=== PATIENT | male | born 1935 | race Caucasian/White ===

== ENCOUNTER 2017-09-09 06:04 | Emergency (ER) | payer MEDICARE, BC ==
[~2017-09-09] VITALS: Ht 167.6 cm; Wt 88.6 kg
[2017-09-09] MEDS ORDERED: MAGNESIUM 400 M1 TAB PO (07:26)
[2017-09-09] MEDS ORDERED: SAW PALMETTO PO (07:27)
[2017-09-09] MEDS ORDERED: OMEPRAZOLE10 MG PO (07:38)
[2017-09-09] MEDS ORDERED: IRON45 MG PO (07:39)
[2017-09-09] MEDS ORDERED: CALCIUM CITRAT950 MG PO (07:41)
[2017-09-09] MEDS ORDERED: DONEPEZIL5 MG PO (07:42)
[2017-09-09] MEDS ORDERED: GLUCOSAMINE1500 M1 PO (07:42)
[2017-09-09] MEDS ORDERED: OMEGA 31000 MG PO (07:42)
[2017-09-09] MEDS ORDERED: TAMSULOSIN HCL0.4 MG PO (07:43)
[2017-09-09] MEDS ORDERED: SINEMET 25/1001 TAB PO (07:43)
[2017-09-09 07:46] LABS: HEMATOCRIT 42.8 % (39.0-50.0); HEMOGLOBIN 14.2 g/dl (14.0-18.0); IMMATURE GRANULOCYTES 0.4 % (0.0-1.0); MEAN CELL VOLUME 97.9 fL CALC (80.0-100.0); MEAN CORPUSCULAR HGB 32.5 pG CALC (26.0-32.0); MEAN CORPUSCULAR HGB CONC 33.2 g/L CALC (32.0-36.0); NEUT# 9.76 thou/uL (1.82-7.42); RED BLOOD COUNT 4.37 mill/uL (4.70-6.10)
[2017-09-09 07:57] LABS: INFLUENZA A NONE DETECTED (NONE DETECT); INFLUENZA B NONE DETECTED (NONE DETECT)
[2017-09-09 08:06] LABS: MYOGLOBIN 157 ng/mL (0 - 121)
[2017-09-09 08:16] LABS: ALBUMIN 3.9 g/dL (3.2-5.0); ALKALINE PHOSPHATASE 85 u/l (38-126); ANION GAP 16 (6-22 (CALC)); BILIRUBIN, TOTAL 0.9 mg/dL (0.0-1.4); BUN 14 mg/dL (8-23); BUN/CREATININE RATIO 11 (12-20 (CALC)); CALCIUM 9.9 mg/dL (8.4-10.2); CARBON DIOXIDE 25 mmol/l (22-30); CHLORIDE 105 mmol/l (95-108); CREATININE 1.2 mg/dL (0.7-1.3); ETHYL ALCOHOL 0 mg/dl (0-30); GFR 58 ML/MIN (>=60 (CALC)); GFR FOR AFR.AMER. > 60 ML/MIN (>=60 (CALC)); GLUCOSE 117 mg/dL (82-115); POTASSIUM 4.2 mmol/l (3.5-5.1); SGOT/AST 25 u/l (19-48); SGPT/ALT 25 u/l (11-66); SODIUM 142 mmol/l (137-146); TOTAL PROTEIN 6.7 g/dL (6.3-8.2)
[2017-09-09 09:27] LABS: URINE BILIRUBIN - DIPSTICK NEGATIVE (NEGATIVE); URINE BLOOD DIPSTICK MODERATE (NEGATIVE); URINE GLUCOSE - DIPSTICK NEGATIVE (NEGATIVE); URINE KETONE 15 mg/dL (NEGATIVE); URINE LEUK ESTERASE NEGATIVE (NEGATIVE); URINE NITRITE - DIPSTICK NEGATIVE (Negative); URINE PH 7.5 (4.5-8.0); URINE PROTEIN - DIPSTICK 30 mg/dL (NEG-TRACE); URINE UROBILINOGEN - DIPSTICK 0.2 E.U./dL (0.2)
[2017-09-09 09:35] LABS: URINE CLARITY SL CLOUDY; URINE COLOR DK. YELLOW; URINE EPITHELIAL CELLS FEW EPI/hpf (0-FEW); URINE MUCUS MODERATE hpf (NONE-FEW)
[2017-09-09 09:36] LABS: BARBITURATES NEGATIVE (NEGATIVE); COCAINE NEGATIVE (NEGATIVE); METHADONE NEGATIVE (NEGATIVE); OXCYCODONE NEGATIVE (NEGATIVE); TETRAHYDROCANNABIONOL NEGATIVE (NEGATIVE); TRICYLIC ANTIDEPRESSANTS NEGATIVE (NEGATIVE)
[2017-09-09 10:30] VITALS: BP 86/53
== END 2017-09-09 10:30 | disposition short-term general hospital (02) ==
LOC: ED 06:04
PROVIDERS: Emergency Medicine
DX: S06.2X0A Diffuse traumatic brain injury without loss of consciousness, initial encounter (principal); G20 Parkinson's disease; F02.80 Dementia in other diseases classified elsewhere, unspecified severity, without behavioral disturbance, psychotic disturbance, mood disturbance, and anxiety; N40.0 Benign prostatic hyperplasia without lower urinary tract symptoms; W19.XXXA Unspecified fall, initial encounter; R00.1 Bradycardia, unspecified

== ENCOUNTER 2018-04-20 05:22 | Observation (INO) | payer MEDICARE, BC ==
[2018-04-20] VITALS (9 sets, daily range): BP systolic 87–116; BP diastolic 39–67
[~2018-04-20] VITALS: Ht 167.6 cm; Wt 86.0 kg
[~2018-04-20 05:22] MED LIST: CALCIUM CITRAT950 MG PO; DONEPEZIL5 MG PO; GLUCOSAMINE1500 M1 PO; IRON45 MG PO; MAGNESIUM 400 M1 TAB PO; OMEGA 31000 MG PO; OMEPRAZOLE10 MG PO; SAW PALMETTO PO; SINEMET 25/1001 TAB PO; TAMSULOSIN HCL0.4 MG PO
[2018-04-20 06:14] LABS: HEMATOCRIT 33.9 % (39.0-50.0); HEMOGLOBIN 11.4 g/dl (14.0-18.0); IMMATURE GRANULOCYTES 0.5 % (0.0-5.0); MEAN CELL VOLUME 97.7 fL CALC (80.0-100.0); MEAN CORPUSCULAR HGB 32.9 pG CALC (26.0-32.0); MEAN CORPUSCULAR HGB CONC 33.6 g/L CALC (32.0-36.0); NEUT# 10.87 thou/uL (1.82-7.42); RED BLOOD COUNT 3.47 mill/uL (4.70-6.10); RED CELL DISTRI WIDTH 12.2 % (11.5-15.5)
[2018-04-20 06:32] LABS: ALBUMIN 3.2 g/dL (3.2-5.0); BILIRUBIN, TOTAL 0.7 mg/dL (0.0-1.4); CREATININE 1.6 mg/dL (0.7-1.3); POTASSIUM 4.5 mmol/l (3.5-5.1); TOTAL PROTEIN 6.2 g/dL (6.3-8.2)
[2018-04-20] MEDS ORDERED: SINEMET CR PO ×2 (06:36→09:19)
[2018-04-20] MEDS ORDERED: ZYRTEC10 MG PO (06:44)
[2018-04-20] MEDS ORDERED: RED YEAS1 PO (06:45)
[2018-04-20] MEDS ORDERED: VITAMIN B-12500 MCG PO (06:46)
[2018-04-20] MEDS ORDERED: [UNRECOGNIZED DRUG - CODE] (06:47)
[2018-04-20] MEDS ORDERED: SMZ-TMP DS1 TAB PO (06:49)
[2018-04-20 07:27] LABS: URINE BILIRUBIN - DIPSTICK NEGATIVE (NEGATIVE); URINE BLOOD DIPSTICK MODERATE (NEGATIVE); URINE CLARITY CLEAR; URINE COLOR YELLOW; URINE GLUCOSE - DIPSTICK NEGATIVE (NEGATIVE); URINE KETONE 15 mg/dL (NEGATIVE); URINE LEUK ESTERASE TRACE (NEGATIVE); URINE NITRITE - DIPSTICK NEGATIVE (Negative); URINE PROTEIN - DIPSTICK 30 mg/dL (NEG-TRACE); URINE SPECIFIC GRAVITY 1.025; URINE UROBILINOGEN - DIPSTICK 0.2 E.U./dL (0.2)
[2018-04-20 07:37] LABS: URINE BACTERIA FEW hpf; URINE MUCUS FEW hpf (NONE-FEW); URINE WBC 20-50 WBC/hpf (0-5)
[2018-04-20 08:19] LABS: INFLUENZA A NONE DETECTED (NONE DETECT); INFLUENZA B NONE DETECTED (NONE DETECT)
[2018-04-20] MEDS ORDERED: DONEPEZIL HCL10 M1 PO (09:18)
[2018-04-20 10:11] LABS: PROTHROMBIN TIME 11.6 SECONDS (9.0-12.5)
[2018-04-21 05:11] VITALS: BP 121/64
[2018-04-21 05:44] LABS: HEMATOCRIT 30.3 % (39.0-50.0); HEMOGLOBIN 10.2 g/dl (14.0-18.0); MEAN CORPUSCULAR HGB CONC 33.7 g/L CALC (32.0-36.0); RED CELL DISTRI WIDTH 12.5 % (11.5-15.5)
[2018-04-21 06:16] LABS: ANION GAP 13 (6-22 (CALC)); BUN 11 mg/dL (8-23); BUN/CREATININE RATIO 10 (12-20 (CALC)); CARBON DIOXIDE 21 mmol/l (22-30); CHLORIDE 110 mmol/l (95-108); CREATININE 1.2 mg/dL (0.7-1.3); GFR 58 ML/MIN (>=60 (CALC)); GFR FOR AFR.AMER. > 60 ML/MIN (>=60 (CALC)); MAGNESIUM 1.8 mg/dL (1.6-2.3); POTASSIUM 4.1 mmol/l (3.5-5.1); SODIUM 140 mmol/l (137-146)
[2018-04-21 09:15] VITALS: BP 138/80
[2018-04-21 11:10] VITALS: BP 120/72
[2018-04-21 15:19] VITALS: BP 104/62
[2018-04-21 19:15] VITALS: BP 125/70
[2018-04-22 04:00] VITALS: BP 138/86
[2018-04-22 07:59] VITALS: BP 138/70
== END 2018-04-22 16:40 | disposition home or self-care (01) ==
LOC: ED 05:22 → ED-I 08:21 → ED 08:32 → MS2 08:33
PROVIDERS: Emergency Medicine; Nurse Practitioner Family; ADMIT Internal Medicine; ATTEND Internal Medicine
PROC: 0T778DZ Dilation of Left Ureter with Intraluminal Device, Via Natural or Artificial Opening Endoscopic (ICD-10-PCS; principal; 2018-04-20)
PROC: BT1FZZZ Fluoroscopy of Left Kidney, Ureter and Bladder (ICD-10-PCS; 2018-04-20)
DX: N13.6 Pyonephrosis (principal); N17.9 Acute kidney failure, unspecified; E86.0 Dehydration; I10 Essential (primary) hypertension; N28.1 Cyst of kidney, acquired; D64.9 Anemia, unspecified; G20 Parkinson's disease; N40.0 Benign prostatic hyperplasia without lower urinary tract symptoms; N32.89 Other specified disorders of bladder; I34.1 Nonrheumatic mitral (valve) prolapse; N32.3 Diverticulum of bladder; G31.84 Mild cognitive impairment of uncertain or unknown etiology; Z87.891 Personal history of nicotine dependence; Z79.899 Other long term (current) drug therapy
CPT/HCPCS: C1769; J1650; Q9967

== ENCOUNTER 2018-05-17 05:43 | Day surgery (SDC) | payer MEDICARE, BC ==
[~2018-05-17 05:43] MED LIST changes: +DONEPEZIL HCL10 M1 PO; +RED YEAS1 PO; +SINEMET CR PO; +SMZ-TMP DS1 TAB PO; +VITAMIN B-12500 MCG PO; +ZYRTEC10 MG PO; +[UNRECOGNIZED DRUG - CODE]
[2018-05-17] MEDS ORDERED: TAMSULOSIN0.4 MG PO (09:14)
[2018-05-17] MEDS ORDERED: NORCO1 TA1 PO (09:14)
[2018-05-17] MEDS ORDERED: PYRIDIUM200 MG PO (09:14)
[2018-05-17] MEDS ORDERED: DOCUSATE CAL240 MG PO (09:14)
[2018-05-17] MEDS ORDERED: BACTRIM DS1 TAB PO (09:14)
[2018-05-17 10:29] VITALS: BP 162/63
== END 2018-05-17 12:00 | disposition home or self-care (01) ==
LOC: ORM 05:43
PROVIDERS: ATTEND Urology
PROC: 0TF48ZZ Fragmentation in Left Kidney Pelvis, Via Natural or Artificial Opening Endoscopic (ICD-10-PCS; principal; 2018-05-17)
PROC: 0T778DZ Dilation of Left Ureter with Intraluminal Device, Via Natural or Artificial Opening Endoscopic (ICD-10-PCS; 2018-05-17)
DX: N20.0 Calculus of kidney (principal); N28.1 Cyst of kidney, acquired; G20 Parkinson's disease; N32.89 Other specified disorders of bladder; N40.1 Benign prostatic hyperplasia with lower urinary tract symptoms; N13.8 Other obstructive and reflux uropathy
CPT/HCPCS: J2710; Q9967

== ENCOUNTER 2018-05-18 23:59 | Emergency (ER) | payer MEDICARE, BC ==
[~2018-05-18] VITALS: Ht 167.6 cm; Wt 77.0 kg
[~2018-05-18 23:59] MED LIST changes: +BACTRIM DS1 TAB PO; +DOCUSATE CAL240 MG PO; +NORCO1 TA1 PO; +PYRIDIUM200 MG PO; +TAMSULOSIN0.4 MG PO
[2018-05-19 01:10] VITALS: BP 118/74
== END 2018-05-19 01:15 | disposition home or self-care (01) ==
LOC: ED 23:59
DX: T83.038A Leakage of other urinary catheter, initial encounter (principal)

== ENCOUNTER 2021-03-13 08:22 | Emergency (ER) | payer MEDICARE, BC ==
[~2021-03-13] VITALS: Ht 167.6 cm; Wt 73.6 kg
[2021-03-13 09:58] LABS: HEMATOCRIT 37.5 % (39.0-50.0); HEMOGLOBIN 12.1 g/dl (14.0-18.0); IMMATURE GRANULOCYTES 0.3 % (0.0-5.0); MEAN CELL VOLUME 102.2 fL CALC (80.0-100.0); MEAN CORPUSCULAR HGB CONC 32.3 g/dL CAL (32.0-36.0); NEUT# 5.13 thou/uL (1.82-7.42); RED BLOOD COUNT 3.67 mill/uL (4.70-6.10); RED CELL DISTRI WIDTH 12.8 % (11.5-15.5)
[2021-03-13 10:13] LABS: ACT PARTIAL THROMBO TIME 27.9 SECONDS (20.0-32.5); ALBUMIN 3.6 g/dL (3.2-5.0); ALKALINE PHOSPHATASE 72 u/l (38-126); ANION GAP 10 (6-22 (CALC)); BILIRUBIN, TOTAL 0.6 mg/dL (0.0-1.4); BUN 9 mg/dL (8-23); BUN/CREATININE RATIO 15 (12-20 (CALC)); CARBON DIOXIDE 25 mmol/l (22-30); CHLORIDE 103 mmol/l (95-108); CREATININE 0.6 mg/dL (0.7-1.3); GFR > 60 ML/MIN (>=60 (CALC)); GFR FOR AFR.AMER. > 60 ML/MIN (>=60 (CALC)); INTERNATIONAL NORMALIZED RATIO 1.1 RATIO (0.7-1.3); LIPASE 21 u/l (23-300); POTASSIUM 3.6 mmol/l (3.5-5.1); PROTHROMBIN TIME 11.3 SECONDS (9.0-12.5); SGOT/AST 23 u/l (19-48); SODIUM 134 mmol/l (137-146); TOTAL PROTEIN 6.8 g/dL (6.3-8.2)
[2021-03-13 11:46] LABS: URINE BILIRUBIN - DIPSTICK NEGATIVE (NEGATIVE); URINE BLOOD DIPSTICK NEGATIVE (NEGATIVE); URINE COLOR YELLOW; URINE GLUCOSE - DIPSTICK NEGATIVE (NEGATIVE); URINE KETONE NEGATIVE (NEGATIVE); URINE LEUK ESTERASE NEGATIVE (NEGATIVE); URINE PROTEIN - DIPSTICK NEGATIVE (NEG-TRACE); URINE SPECIFIC GRAVITY 1.015; URINE UROBILINOGEN - DIPSTICK 0.2 E.U./dL (0.2)
[2021-03-13 11:48] LABS: URINE NITRITE - DIPSTICK NEGATIVE (Negative)
[2021-03-13] MEDS ORDERED: ZPAK PO (12:14)
[2021-03-13 12:22] VITALS: BP 152/74
== END 2021-03-13 12:24 | disposition home or self-care (01) ==
LOC: ED 08:22
DX: S40.011A Contusion of right shoulder, initial encounter (principal); S40.012A Contusion of left shoulder, initial encounter; S20.211A Contusion of right front wall of thorax, initial encounter; J18.9 Pneumonia, unspecified organism; G20 Parkinson's disease; I10 Essential (primary) hypertension; N40.0 Benign prostatic hyperplasia without lower urinary tract symptoms; W19.XXXA Unspecified fall, initial encounter; Y92.009 Unspecified place in unspecified non-institutional (private) residence as the place of occurrence of the external cause; Z91.81 History of falling; Z20.822 Contact with and (suspected) exposure to COVID-19

== ENCOUNTER 2022-08-08 16:50 | Emergency (ER) | payer MEDICARE, BC ==
[~2022-08-08] VITALS: Ht 167.6 cm; Wt 74.0 kg
[~2022-08-08 16:50] MED LIST changes: +ZPAK PO
[2022-08-08] MEDS ORDERED: NUPLAZID34 MG (17:44)
[2022-08-08] MEDS ORDERED: GUAIFENESIN400 MG PO (19:46)
[2022-08-08] MEDS ORDERED: PREDNISONE10 MG PO (19:46)
[2022-08-08] MEDS ORDERED: ZYRTEC10 MG PO (19:46)
[2022-08-08] MEDS ORDERED: PROAIR HFA IN (19:46)
[2022-08-08 20:19] VITALS: BP 130/78
== END 2022-08-08 20:32 | disposition home or self-care (01) ==
LOC: ED 16:50
DX: J40 Bronchitis, not specified as acute or chronic (principal); I10 Essential (primary) hypertension; G20 Parkinson's disease; Z20.822 Contact with and (suspected) exposure to COVID-19

== ENCOUNTER 2022-10-20 10:39 | Emergency (ER) | payer MEDICARE, BC ==
[~2022-10-20] VITALS: Ht 167.6 cm; Wt 72.5 kg
[~2022-10-20 10:39] MED LIST changes: +GUAIFENESIN400 MG PO; +NUPLAZID34 MG; +PREDNISONE10 MG PO; +PROAIR HFA IN
[2022-10-20] MEDS ORDERED: LEVOCETIRIZINE D5 MG PO (13:47)
[2022-10-20] MEDS ORDERED: ALLERGY RE50 MCG/ACT (13:47)
[2022-10-20 14:04] VITALS: BP 159/97
== END 2022-10-20 14:15 | disposition home or self-care (01) ==
LOC: ED 10:39
DX: J32.9 Chronic sinusitis, unspecified (principal); I10 Essential (primary) hypertension; G20 Parkinson's disease; Z20.822 Contact with and (suspected) exposure to COVID-19

== ENCOUNTER 2022-10-28 20:07 | Inpatient (IN) | payer MEDICARE, BC ==
[2022-10-28] VITALS (15 sets, daily range): BP systolic 84–128; BP diastolic 55–101
[~2022-10-28] VITALS: Ht 167.6 cm; Wt 74.3 kg
[~2022-10-28 20:07] MED LIST changes: +ALLERGY RE50 MCG/ACT; +LEVOCETIRIZINE D5 MG PO
[2022-10-28 20:56] LABS: BASO% 0.2 % (0-3); EOS% 1.1 % (0-8); HEMATOCRIT 39.4 % (39.0-50.0); HEMOGLOBIN 12.6 g/dl (14.0-18.0); IMMATURE GRANULOCYTES 0.2 % (0.0-5.0); LYMPH% 4.6 % (15-41); MEAN CELL VOLUME 102.3 fL CALC (80.0-100.0); MEAN CORPUSCULAR HGB 32.7 pG CALC (26.0-32.0); MONO% 6.2 % (2-13); NEUT# 11.8 thou/uL (1.82-7.42); NEUT% 87.7 % (42-76); RED BLOOD COUNT 3.85 mill/uL (4.70-6.10); RED CELL DISTRI WIDTH 12.9 % (11.5-15.5)
[2022-10-28 21:09] LABS: ALBUMIN 3.6 g/dL (3.2-5.0); ALKALINE PHOSPHATASE 90 u/l (38-126); ANION GAP 9 (6-22 (CALC)); BILIRUBIN, TOTAL 0.7 mg/dL (0.2-1.3); BUN 12 mg/dL (8-23); BUN/CREATININE RATIO 18 (12-20 (CALC)); CARBON DIOXIDE 26 mmol/l (22-30); CHLORIDE 105 mmol/l (95-108); CREATININE 0.7 mg/dL (0.7-1.3); GFR FOR AFR.AMER. > 60 ML/MIN (>=60 (CALC)); GFR OTHER RACES > 60 ML/MIN (>=60 (CALC)); SGOT/AST 22 u/l (19-48); SODIUM 136 mmol/l (137-146); TOTAL PROTEIN 6.9 g/dL (6.3-8.2)
[2022-10-28 22:30] LABS: URINE BILIRUBIN - DIPSTICK NEGATIVE (NEGATIVE); URINE BLOOD DIPSTICK NEGATIVE (NEGATIVE); URINE COLOR YELLOW; URINE GLUCOSE - DIPSTICK NEGATIVE (NEGATIVE); URINE KETONE TRACE mg/dL (NEGATIVE); URINE LEUK ESTERASE NEGATIVE (NEGATIVE); URINE PH 6.5 (4.5-8.0); URINE PROTEIN - DIPSTICK NEGATIVE (NEG-TRACE); URINE UROBILINOGEN - DIPSTICK 0.2 E.U./dL (0.2)
[2022-10-28 22:31] LABS: URINE NITRITE - DIPSTICK NEGATIVE (Negative)
[2022-10-29] VITALS (9 sets, daily range): BP systolic 102–131; BP diastolic 55–77
[2022-10-29] MEDS ORDERED: LEVOTHYROXIN50 MCG PO (18:00)
[2022-10-29] MEDS ORDERED: RIVASTIGMI4.6 MG/24 TD (18:02)
[2022-10-29] MEDS ORDERED: FLUDROCORT0.1 MG PO (18:02)
[2022-10-29] MEDS ORDERED: DROXIDOPA PO (18:04)
[2022-10-29] MEDS ORDERED: RYTARY 36.25-141 CAP PO (18:05)
[2022-10-29] MEDS ORDERED: FINASTERIDE5 MG PO (18:09)
[2022-10-30 03:32] VITALS: BP 147/79
[2022-10-30 05:07] LABS: BASO% 0.2 % (0-3); EOS% 4.4 % (0-8); HEMATOCRIT 34.9 % (39.0-50.0); HEMOGLOBIN 11.2 g/dl (14.0-18.0); IMMATURE GRANULOCYTES 0.8 % (0.0-5.0); LYMPH% 16.1 % (15-41); MEAN CELL VOLUME 102.6 fL CALC (80.0-100.0); MEAN CORPUSCULAR HGB 32.9 pG CALC (26.0-32.0); MEAN CORPUSCULAR HGB CONC 32.1 g/dL CAL (32.0-36.0); MONO% 10.8 % (2-13); NEUT# 4.5 thou/uL (1.82-7.42); NEUT% 67.7 % (42-76); RED BLOOD COUNT 3.4 mill/uL (4.70-6.10)
[2022-10-30 05:27] LABS: ALKALINE PHOSPHATASE 76 u/l (38-126); ANION GAP 8 (6-22 (CALC)); BUN 12 mg/dL (8-23); BUN/CREATININE RATIO 21 (12-20 (CALC)); CARBON DIOXIDE 24 mmol/l (22-30); CHLORIDE 110 mmol/l (95-108); CREATININE 0.6 mg/dL (0.7-1.3); GFR FOR AFR.AMER. > 60 ML/MIN (>=60 (CALC)); GFR OTHER RACES > 60 ML/MIN (>=60 (CALC)); POTASSIUM 3.9 mmol/l (3.5-5.1); SGOT/AST 19 u/l (19-48); SODIUM 138 mmol/l (137-146)
[2022-10-30 05:35] LABS: ALBUMIN 2.7 g/dL (3.2-5.0); BILIRUBIN, TOTAL 0.4 mg/dL (0.2-1.3); TOTAL PROTEIN 5.4 g/dL (6.3-8.2)
[2022-10-30 06:00] VITALS: BP 143/83
[2022-10-30 10:01] VITALS: BP 137/88
[2022-10-30 14:40] VITALS: BP 158/86
[2022-10-30 18:02] VITALS: BP 142/87
[2022-10-30 23:22] VITALS: BP 122/68
[2022-10-31] VITALS (7 sets, daily range): BP systolic 119–152; BP diastolic 73–82
[2022-10-31 05:35] LABS: BASO% 0.4 % (0-3); EOS% 6.2 % (0-8); HEMATOCRIT 36.8 % (39.0-50.0); HEMOGLOBIN 11.7 g/dl (14.0-18.0); IMMATURE GRANULOCYTES 0.3 % (0.0-5.0); LYMPH% 16.9 % (15-41); MEAN CELL VOLUME 102.8 fL CALC (80.0-100.0); MEAN CORPUSCULAR HGB 32.7 pG CALC (26.0-32.0); MEAN CORPUSCULAR HGB CONC 31.8 g/dL CAL (32.0-36.0); MONO% 8.6 % (2-13); NEUT# 5.05 thou/uL (1.82-7.42); NEUT% 67.6 % (42-76); RED BLOOD COUNT 3.58 mill/uL (4.70-6.10); RED CELL DISTRI WIDTH 12.9 % (11.5-15.5)
[2022-10-31 05:58] LABS: ALBUMIN 3.2 g/dL (3.2-5.0); ALKALINE PHOSPHATASE 70 u/l (38-126); ANION GAP 8 (6-22 (CALC)); BUN 11 mg/dL (8-23); BUN/CREATININE RATIO 17 (12-20 (CALC)); CARBON DIOXIDE 27 mmol/l (22-30); CHLORIDE 106 mmol/l (95-108); CREATININE 0.6 mg/dL (0.7-1.3); GFR FOR AFR.AMER. > 60 ML/MIN (>=60 (CALC)); GFR OTHER RACES > 60 ML/MIN (>=60 (CALC)); POTASSIUM 3.8 mmol/l (3.5-5.1); SGOT/AST 20 u/l (19-48); SODIUM 138 mmol/l (137-146); TOTAL PROTEIN 6.3 g/dL (6.3-8.2)
[2022-10-31 06:07] LABS: BILIRUBIN, TOTAL 0.6 mg/dL (0.2-1.3)
[2022-11-01 03:19] VITALS: BP 140/79
[2022-11-01 05:43] VITALS: BP 139/71
[2022-11-01 05:57] LABS: BASO% 0.4 % (0-3); EOS% 6.9 % (0-8); HEMATOCRIT 35.9 % (39.0-50.0); HEMOGLOBIN 11.5 g/dl (14.0-18.0); IMMATURE GRANULOCYTES 0.3 % (0.0-5.0); LYMPH% 17.8 % (15-41); MEAN CELL VOLUME 103.2 fL CALC (80.0-100.0); NEUT# 4.99 thou/uL (1.82-7.42); NEUT% 65.6 % (42-76); RED BLOOD COUNT 3.48 mill/uL (4.70-6.10); RED CELL DISTRI WIDTH 12.8 % (11.5-15.5)
[2022-11-01 06:19] LABS: ALBUMIN 3.3 g/dL (3.2-5.0); ALKALINE PHOSPHATASE 72 u/l (38-126); ANION GAP 10 (6-22 (CALC)); BILIRUBIN, TOTAL 0.7 mg/dL (0.2-1.3); BUN 11 mg/dL (8-23); BUN/CREATININE RATIO 18 (12-20 (CALC)); CARBON DIOXIDE 26 mmol/l (22-30); CHLORIDE 105 mmol/l (95-108); CREATININE 0.6 mg/dL (0.7-1.3); GFR FOR AFR.AMER. > 60 ML/MIN (>=60 (CALC)); GFR OTHER RACES > 60 ML/MIN (>=60 (CALC)); MAGNESIUM 1.9 mg/dL (1.6-2.3); POTASSIUM 3.7 mmol/l (3.5-5.1); SGOT/AST 21 u/l (19-48); SODIUM 137 mmol/l (137-146); TOTAL PROTEIN 6.4 g/dL (6.3-8.2)
[2022-11-01 09:31] VITALS: BP 121/62
[2022-11-01 16:04] VITALS: BP 102/68
[2022-11-01 17:27] VITALS: BP 97/56
[2022-11-02 03:41] VITALS: BP 137/69
[2022-11-02 06:14] VITALS: BP 135/73
[2022-11-02 06:15] LABS: BASO% 0.2 % (0-3); EOS% 5.2 % (0-8); HEMATOCRIT 33.9 % (39.0-50.0); HEMOGLOBIN 10.9 g/dl (14.0-18.0); IMMATURE GRANULOCYTES 0.7 % (0.0-5.0); LYMPH% 10.6 % (15-41); MEAN CELL VOLUME 102.1 fL CALC (80.0-100.0); MEAN CORPUSCULAR HGB 32.8 pG CALC (26.0-32.0); MEAN CORPUSCULAR HGB CONC 32.2 g/dL CAL (32.0-36.0); MONO% 8.5 % (2-13); NEUT# 5.98 thou/uL (1.82-7.42); NEUT% 74.8 % (42-76); RED BLOOD COUNT 3.32 mill/uL (4.70-6.10); RED CELL DISTRI WIDTH 12.8 % (11.5-15.5)
[2022-11-02 06:33] LABS: ALBUMIN 3.2 g/dL (3.2-5.0); ALKALINE PHOSPHATASE 69 u/l (38-126); ANION GAP 9 (6-22 (CALC)); BILIRUBIN, TOTAL 0.5 mg/dL (0.2-1.3); BUN 13 mg/dL (8-23); BUN/CREATININE RATIO 23 (12-20 (CALC)); CARBON DIOXIDE 28 mmol/l (22-30); CHLORIDE 104 mmol/l (95-108); CREATININE 0.6 mg/dL (0.7-1.3); GFR FOR AFR.AMER. > 60 ML/MIN (>=60 (CALC)); GFR OTHER RACES > 60 ML/MIN (>=60 (CALC)); POTASSIUM 3.5 mmol/l (3.5-5.1); SGOT/AST 23 u/l (19-48); SODIUM 138 mmol/l (137-146); TOTAL PROTEIN 6.2 g/dL (6.3-8.2)
[2022-11-02 09:55] VITALS: BP 149/76
[2022-11-02] MEDS ORDERED: AUGMENTIN500TAB PO (12:40)
== END 2022-11-02 14:46 | DRG 195 ==
LOC: ED 20:07 → ED-I 22:00 → ED 22:42 → MS2 22:43
PROVIDERS: Emergency Medicine; Nurse Practitioner Family; ADMIT Internal Medicine; ATTEND Internal Medicine
DX: J18.9 Pneumonia, unspecified organism (principal); G20 Parkinson's disease; F02.A0 Dementia in other diseases classified elsewhere, mild, without behavioral disturbance, psychotic disturbance, mood disturbance, and anxiety; K22.5 Diverticulum of esophagus, acquired; I10 Essential (primary) hypertension; I34.1 Nonrheumatic mitral (valve) prolapse; N40.0 Benign prostatic hyperplasia without lower urinary tract symptoms; E03.9 Hypothyroidism, unspecified; Z87.891 Personal history of nicotine dependence; Z20.822 Contact with and (suspected) exposure to COVID-19
CPT/HCPCS: J1650

== ENCOUNTER 2022-11-14 05:17 | Emergency (ER) | payer MEDICARE, BC ==
[2022-11-14] VITALS (20 sets, daily range): BP systolic 88–135; BP diastolic 54–78
[~2022-11-14] VITALS: Ht 167.6 cm; Wt 76.3 kg
[~2022-11-14 05:17] MED LIST changes: +AUGMENTIN500TAB PO; +DROXIDOPA PO; +FINASTERIDE5 MG PO; +FLUDROCORT0.1 MG PO; +LEVOTHYROXIN50 MCG PO; +RIVASTIGMI4.6 MG/24 TD; +RYTARY 36.25-141 CAP PO
[2022-11-14 05:54] LABS: BASO% 0.1 % (0-3); EOS% 4.5 % (0-8); HEMATOCRIT 33.5 % (39.0-50.0); HEMOGLOBIN 10.8 g/dl (14.0-18.0); IMMATURE GRANULOCYTES 0.2 % (0.0-5.0); LYMPH% 16.3 % (15-41); MEAN CELL VOLUME 102.8 fL CALC (80.0-100.0); MEAN CORPUSCULAR HGB 33.1 pG CALC (26.0-32.0); MEAN CORPUSCULAR HGB CONC 32.2 g/dL CAL (32.0-36.0); MONO% 12.8 % (2-13); NEUT# 5.62 thou/uL (1.82-7.42); NEUT% 66.1 % (42-76); RED BLOOD COUNT 3.26 mill/uL (4.70-6.10)
[2022-11-14 06:05] LABS: ALBUMIN 3.2 g/dL (3.2-5.0); ALKALINE PHOSPHATASE 64 u/l (38-126); ANION GAP 8 (6-22 (CALC)); BILIRUBIN, TOTAL 0.5 mg/dL (0.2-1.3); BUN 24 mg/dL (8-23); BUN/CREATININE RATIO 39 (12-20 (CALC)); CARBON DIOXIDE 25 mmol/l (22-30); CHLORIDE 109 mmol/l (95-108); CREATININE 0.6 mg/dL (0.7-1.3); GFR FOR AFR.AMER. > 60 ML/MIN (>=60 (CALC)); GFR OTHER RACES > 60 ML/MIN (>=60 (CALC)); MAGNESIUM 1.9 mg/dL (1.6-2.3); POTASSIUM 3.7 mmol/l (3.5-5.1); SGOT/AST 36 u/l (19-48); SODIUM 139 mmol/l (137-146); TOTAL PROTEIN 6.2 g/dL (6.3-8.2)
[2022-11-14 06:24] LABS: URINE BILIRUBIN - DIPSTICK NEGATIVE (NEGATIVE); URINE BLOOD DIPSTICK NEGATIVE (NEGATIVE); URINE COLOR YELLOW; URINE GLUCOSE - DIPSTICK NEGATIVE (NEGATIVE); URINE KETONE NEGATIVE (NEGATIVE); URINE LEUK ESTERASE NEGATIVE (NEGATIVE); URINE PROTEIN - DIPSTICK NEGATIVE (NEG-TRACE); URINE SPECIFIC GRAVITY 1.015; URINE UROBILINOGEN - DIPSTICK 0.2 E.U./dL (0.2)
[2022-11-14 06:25] LABS: URINE NITRITE - DIPSTICK NEGATIVE (Negative)
[2022-11-14 06:36] LABS: TSH, 3RD GENERATION 2.77 uIU/mL (0.47 - 4.68)
[2022-11-14 07:38] LABS: D-DIMER 2.45 mg/L (0.19-0.60)
[2022-11-14 07:49] LABS: INTERNATIONAL NORMALIZED RATIO 1.2 RATIO (0.7-1.3); PROTHROMBIN TIME 11.5 SECONDS (9.0-12.5)
== END 2022-11-14 09:55 | disposition short-term general hospital (02) ==
LOC: ED 05:17
PROVIDERS: Family Medicine
DX: R79.89 Other specified abnormal findings of blood chemistry (principal); J81.1 Chronic pulmonary edema; I10 Essential (primary) hypertension; G20 Parkinson's disease; F02.80 Dementia in other diseases classified elsewhere, unspecified severity, without behavioral disturbance, psychotic disturbance, mood disturbance, and anxiety; E03.9 Hypothyroidism, unspecified; Z99.81 Dependence on supplemental oxygen; Z20.822 Contact with and (suspected) exposure to COVID-19

== ENCOUNTER 2022-12-27 20:38 | Inpatient (IN) | payer MEDICARE, BC ==
[2022-12-27] VITALS (13 sets, daily range): BP systolic 110–133; BP diastolic 70–85
[~2022-12-27] VITALS: Ht 167.6 cm; Wt 67.6 kg
[2022-12-27 21:47] LABS: BASO% 0.1 % (0-3); EOS% 0.7 % (0-8); IMMATURE GRANULOCYTES 0.2 % (0.0-5.0); LYMPH% 3.1 % (15-41); MEAN CELL VOLUME 100.7 fL CALC (80.0-100.0); MEAN CORPUSCULAR HGB 32.5 pG CALC (26.0-32.0); MEAN CORPUSCULAR HGB CONC 32.3 g/dL CAL (32.0-36.0); MONO% 3.9 % (2-13); NEUT# 12.62 thou/uL (1.82-7.42); RED BLOOD COUNT 4.06 mill/uL (4.70-6.10); RED CELL DISTRI WIDTH 13.5 % (11.5-15.5)
[2022-12-27 21:48] LABS: HEMATOCRIT 40.9 % (39.0-50.0); HEMOGLOBIN 13.2 g/dl (14.0-18.0)
[2022-12-27 21:55] LABS: ALBUMIN 3.7 g/dL (3.2-5.0); ANION GAP 13 (6-22 (CALC)); BILIRUBIN, TOTAL 0.5 mg/dL (0.2-1.3); BUN 15 mg/dL (8-23); BUN/CREATININE RATIO 25 (12-20 (CALC)); CARBON DIOXIDE 27 mmol/l (22-30); CHLORIDE 103 mmol/l (95-108); CREATININE 0.6 mg/dL (0.7-1.3); GFR FOR AFR.AMER. > 60 ML/MIN (>=60 (CALC)); GFR OTHER RACES > 60 ML/MIN (>=60 (CALC)); POTASSIUM 4.1 mmol/l (3.5-5.1); SGOT/AST 28 u/l (19-48); SODIUM 140 mmol/l (137-146); TOTAL PROTEIN 6.8 g/dL (6.3-8.2)
[2022-12-27 21:56] LABS: ALKALINE PHOSPHATASE 101 u/l (38-126)
[2022-12-27 23:14] LABS: URINE BILIRUBIN - DIPSTICK NEGATIVE (NEGATIVE); URINE BLOOD DIPSTICK NEGATIVE (NEGATIVE); URINE COLOR YELLOW; URINE GLUCOSE - DIPSTICK NEGATIVE (NEGATIVE); URINE KETONE TRACE mg/dL (NEGATIVE); URINE LEUK ESTERASE NEGATIVE (NEGATIVE); URINE NITRITE - DIPSTICK NEGATIVE (Negative); URINE PROTEIN - DIPSTICK TRACE mg/dL (NEG-TRACE); URINE SPECIFIC GRAVITY 1.025
[2022-12-28] VITALS (30 sets, daily range): BP systolic 78–135; BP diastolic 51–90
[2022-12-28] MEDS ORDERED: NUPLAZID34 MG PO (11:00)
[2022-12-29] VITALS (8 sets, daily range): BP systolic 104–147; BP diastolic 62–84
[2022-12-29 05:17] LABS: MEAN CELL VOLUME 103.7 fL CALC (80.0-100.0); MEAN CORPUSCULAR HGB 32.8 pG CALC (26.0-32.0); MEAN CORPUSCULAR HGB CONC 31.7 g/dL CAL (32.0-36.0); RED BLOOD COUNT 3.26 mill/uL (4.70-6.10); RED CELL DISTRI WIDTH 13.8 % (11.5-15.5)
[2022-12-29 05:22] LABS: HEMATOCRIT 33.8 % (39.0-50.0); HEMOGLOBIN 10.7 g/dl (14.0-18.0)
[2022-12-29 05:28] LABS: ALKALINE PHOSPHATASE 66 u/l (38-126); ANION GAP 8 (6-22 (CALC)); BUN 12 mg/dL (8-23); BUN/CREATININE RATIO 23 (12-20 (CALC)); CARBON DIOXIDE 27 mmol/l (22-30); CHLORIDE 109 mmol/l (95-108); CREATININE 0.5 mg/dL (0.7-1.3); GFR FOR AFR.AMER. > 60 ML/MIN (>=60 (CALC)); GFR OTHER RACES > 60 ML/MIN (>=60 (CALC)); MAGNESIUM 1.9 mg/dL (1.6-2.3); POTASSIUM 3.8 mmol/l (3.5-5.1); SGOT/AST 24 u/l (19-48); SODIUM 139 mmol/l (137-146); TOTAL PROTEIN 5.5 g/dL (6.3-8.2)
[2022-12-29 05:39] LABS: ALBUMIN 2.9 g/dL (3.2-5.0); BILIRUBIN, TOTAL 0.8 mg/dL (0.2-1.3)
[2022-12-30] VITALS (9 sets, daily range): BP systolic 97–144; BP diastolic 54–77
[2022-12-30 01:30] LABS: BASO% 0.3 % (0-3); EOS% 6.9 % (0-8); HEMATOCRIT 31.3 % (39.0-50.0); IMMATURE GRANULOCYTES 0.3 % (0.0-5.0); LYMPH% 13.9 % (15-41); MEAN CORPUSCULAR HGB 32.9 pG CALC (26.0-32.0); MEAN CORPUSCULAR HGB CONC 31.9 g/dL CAL (32.0-36.0); MONO% 8.9 % (2-13); NEUT# 5.26 thou/uL (1.82-7.42); NEUT% 69.7 % (42-76); RED BLOOD COUNT 3.04 mill/uL (4.70-6.10); RED CELL DISTRI WIDTH 13.4 % (11.5-15.5)
[2022-12-30 05:43] LABS: HEMATOCRIT 34.4 % (39.0-50.0); HEMOGLOBIN 10.9 g/dl (14.0-18.0); MEAN CELL VOLUME 102.7 fL CALC (80.0-100.0); MEAN CORPUSCULAR HGB 32.5 pG CALC (26.0-32.0); MEAN CORPUSCULAR HGB CONC 31.7 g/dL CAL (32.0-36.0); RED BLOOD COUNT 3.35 mill/uL (4.70-6.10); RED CELL DISTRI WIDTH 13.4 % (11.5-15.5)
[2022-12-30 06:12] LABS: ALKALINE PHOSPHATASE 67 u/l (38-126); ANION GAP 8 (6-22 (CALC)); BILIRUBIN, TOTAL 0.6 mg/dL (0.2-1.3); BUN 8 mg/dL (8-23); BUN/CREATININE RATIO 16 (12-20 (CALC)); CARBON DIOXIDE 26 mmol/l (22-30); CHLORIDE 107 mmol/l (95-108); CREATININE 0.5 mg/dL (0.7-1.3); GFR FOR AFR.AMER. > 60 ML/MIN (>=60 (CALC)); GFR OTHER RACES > 60 ML/MIN (>=60 (CALC)); MAGNESIUM 1.9 mg/dL (1.6-2.3); POTASSIUM 3.2 mmol/l (3.5-5.1); SGOT/AST 25 u/l (19-48); SODIUM 138 mmol/l (137-146); TOTAL PROTEIN 5.9 g/dL (6.3-8.2)
[2022-12-31 02:58] VITALS: BP 108/70
[2022-12-31 04:22] VITALS: BP 106/67
[2022-12-31 05:09] VITALS: BP 106/67
[2022-12-31 05:10] VITALS: BP 106/67
[2022-12-31 05:24] LABS: BASO% 0.1 % (0-3); EOS% 2.9 % (0-8); HEMATOCRIT 35.9 % (39.0-50.0); HEMOGLOBIN 11.5 g/dl (14.0-18.0); IMMATURE GRANULOCYTES 0.3 % (0.0-5.0); LYMPH% 7.3 % (15-41); MEAN CELL VOLUME 101.7 fL CALC (80.0-100.0); MEAN CORPUSCULAR HGB 32.6 pG CALC (26.0-32.0); NEUT# 6.13 thou/uL (1.82-7.42); NEUT% 81.4 % (42-76); RED BLOOD COUNT 3.53 mill/uL (4.70-6.10); RED CELL DISTRI WIDTH 13.2 % (11.5-15.5)
[2022-12-31 05:43] LABS: ALBUMIN 3.4 g/dL (3.2-5.0); ALKALINE PHOSPHATASE 73 u/l (38-126); ANION GAP 12 (6-22 (CALC)); BILIRUBIN, TOTAL 0.8 mg/dL (0.2-1.3); BUN 6 mg/dL (8-23); BUN/CREATININE RATIO 10 (12-20 (CALC)); CARBON DIOXIDE 24 mmol/l (22-30); CHLORIDE 108 mmol/l (95-108); CREATININE 0.6 mg/dL (0.7-1.3); GFR FOR AFR.AMER. > 60 ML/MIN (>=60 (CALC)); GFR OTHER RACES > 60 ML/MIN (>=60 (CALC)); POTASSIUM 3.5 mmol/l (3.5-5.1); SGOT/AST 27 u/l (19-48); SODIUM 140 mmol/l (137-146); TOTAL PROTEIN 6.7 g/dL (6.3-8.2)
[2022-12-31 07:04] VITALS: BP 101/60
[2022-12-31 19:17] VITALS: BP 116/73
[2023-01-01] VITALS (8 sets, daily range): BP systolic 119–156; BP diastolic 66–87
[2023-01-01 05:53] LABS: BASO% 0.4 % (0-3); HEMOGLOBIN 9.8 g/dl (14.0-18.0); IMMATURE GRANULOCYTES 0.1 % (0.0-5.0); MEAN CELL VOLUME 102.3 fL CALC (80.0-100.0); MEAN CORPUSCULAR HGB 32.3 pG CALC (26.0-32.0); MEAN CORPUSCULAR HGB CONC 31.6 g/dL CAL (32.0-36.0); MONO% 11.5 % (2-13); NEUT# 4.49 thou/uL (1.82-7.42); RED BLOOD COUNT 3.03 mill/uL (4.70-6.10); RED CELL DISTRI WIDTH 13.5 % (11.5-15.5)
[2023-01-01 06:11] LABS: ANION GAP 7 (6-22 (CALC)); BUN 6 mg/dL (8-23); BUN/CREATININE RATIO 10 (12-20 (CALC)); CARBON DIOXIDE 27 mmol/l (22-30); CHLORIDE 109 mmol/l (95-108); CREATININE 0.6 mg/dL (0.7-1.3); GFR FOR AFR.AMER. > 60 ML/MIN (>=60 (CALC)); GFR OTHER RACES > 60 ML/MIN (>=60 (CALC)); POTASSIUM 3.6 mmol/l (3.5-5.1); SODIUM 139 mmol/l (137-146)
[2023-01-02 04:00] VITALS: BP 125/66
[2023-01-02 06:20] LABS: BASO% 0.1 % (0-3); EOS% 4.6 % (0-8); HEMATOCRIT 29.5 % (39.0-50.0); HEMOGLOBIN 9.4 g/dl (14.0-18.0); IMMATURE GRANULOCYTES 0.2 % (0.0-5.0); LYMPH% 11.2 % (15-41); MEAN CELL VOLUME 101.7 fL CALC (80.0-100.0); MEAN CORPUSCULAR HGB 32.4 pG CALC (26.0-32.0); MEAN CORPUSCULAR HGB CONC 31.9 g/dL CAL (32.0-36.0); MONO% 9.8 % (2-13); NEUT# 6.22 thou/uL (1.82-7.42); NEUT% 74.1 % (42-76); RED BLOOD COUNT 2.9 mill/uL (4.70-6.10); RED CELL DISTRI WIDTH 13.3 % (11.5-15.5)
[2023-01-02 06:46] LABS: ALBUMIN 2.8 g/dL (3.2-5.0); ALKALINE PHOSPHATASE 56 u/l (38-126); ANION GAP 6 (6-22 (CALC)); BILIRUBIN, TOTAL 0.7 mg/dL (0.2-1.3); BUN 7 mg/dL (8-23); BUN/CREATININE RATIO 12 (12-20 (CALC)); CARBON DIOXIDE 30 mmol/l (22-30); CHLORIDE 104 mmol/l (95-108); CREATININE 0.6 mg/dL (0.7-1.3); GFR FOR AFR.AMER. > 60 ML/MIN (>=60 (CALC)); GFR OTHER RACES > 60 ML/MIN (>=60 (CALC)); POTASSIUM 3.1 mmol/l (3.5-5.1); SGOT/AST 32 u/l (19-48); SODIUM 137 mmol/l (137-146); TOTAL PROTEIN 5.7 g/dL (6.3-8.2)
[2023-01-02 07:27] VITALS: BP 133/76
[2023-01-02 11:17] VITALS: BP 120/63
[2023-01-02 15:12] VITALS: BP 104/56
[2023-01-02 20:25] VITALS: BP 134/78
[2023-01-02 23:40] VITALS: BP 136/67
[2023-01-03 03:51] VITALS: BP 128/67
[2023-01-03 05:55] LABS: BASO% 0.1 % (0-3); EOS% 0.2 % (0-8); HEMATOCRIT 31.1 % (39.0-50.0); HEMOGLOBIN 9.9 g/dl (14.0-18.0); IMMATURE GRANULOCYTES 0.2 % (0.0-5.0); LYMPH% 6.5 % (15-41); MEAN CELL VOLUME 101.6 fL CALC (80.0-100.0); MEAN CORPUSCULAR HGB 32.4 pG CALC (26.0-32.0); MEAN CORPUSCULAR HGB CONC 31.8 g/dL CAL (32.0-36.0); MONO% 6.1 % (2-13); NEUT# 8.05 thou/uL (1.82-7.42); NEUT% 86.9 % (42-76); RED BLOOD COUNT 3.06 mill/uL (4.70-6.10); RED CELL DISTRI WIDTH 13.3 % (11.5-15.5)
[2023-01-03 06:14] LABS: ALBUMIN 3.1 g/dL (3.2-5.0); ALKALINE PHOSPHATASE 62 u/l (38-126); ANION GAP 9 (6-22 (CALC)); BILIRUBIN, TOTAL 0.7 mg/dL (0.2-1.3); BUN 7 mg/dL (8-23); BUN/CREATININE RATIO 11 (12-20 (CALC)); CARBON DIOXIDE 32 mmol/l (22-30); CHLORIDE 101 mmol/l (95-108); CREATININE 0.6 mg/dL (0.7-1.3); GFR FOR AFR.AMER. > 60 ML/MIN (>=60 (CALC)); GFR OTHER RACES > 60 ML/MIN (>=60 (CALC)); MAGNESIUM 1.8 mg/dL (1.6-2.3); POTASSIUM 3.1 mmol/l (3.5-5.1); SGOT/AST 31 u/l (19-48); SODIUM 139 mmol/l (137-146); TOTAL PROTEIN 6.3 g/dL (6.3-8.2)
[2023-01-03 07:32] VITALS: BP 159/78
[2023-01-03 11:35] VITALS: BP 141/74
[2023-01-03 16:07] VITALS: BP 135/78
[2023-01-03 20:17] VITALS: BP 86/45
[2023-01-03 23:01] VITALS: BP 103/60
[2023-01-04] VITALS (8 sets, daily range): BP systolic 92–142; BP diastolic 48–78
[2023-01-04 06:36] LABS: ALKALINE PHOSPHATASE 67 u/l (38-126); ANION GAP 12 (6-22 (CALC)); BILIRUBIN, TOTAL 0.5 mg/dL (0.2-1.3); BUN 17 mg/dL (8-23); BUN/CREATININE RATIO 28 (12-20 (CALC)); CARBON DIOXIDE 29 mmol/l (22-30); CHLORIDE 102 mmol/l (95-108); CREATININE 0.6 mg/dL (0.7-1.3); GFR FOR AFR.AMER. > 60 ML/MIN (>=60 (CALC)); GFR OTHER RACES > 60 ML/MIN (>=60 (CALC)); MAGNESIUM 1.9 mg/dL (1.6-2.3); POTASSIUM 3.7 mmol/l (3.5-5.1); SGOT/AST 26 u/l (19-48); SODIUM 140 mmol/l (137-146); TOTAL PROTEIN 5.8 g/dL (6.3-8.2)
[2023-01-04 06:41] LABS: HEMATOCRIT 33.6 % (39.0-50.0); HEMOGLOBIN 10.5 g/dl (14.0-18.0); MEAN CELL VOLUME 103.1 fL CALC (80.0-100.0); MEAN CORPUSCULAR HGB 32.2 pG CALC (26.0-32.0); MEAN CORPUSCULAR HGB CONC 31.3 g/dL CAL (32.0-36.0); RED BLOOD COUNT 3.26 mill/uL (4.70-6.10); RED CELL DISTRI WIDTH 13.4 % (11.5-15.5)
[2023-01-05 03:26] VITALS: BP 161/90
[2023-01-05 03:29] VITALS: BP 158/91
[2023-01-05 06:11] LABS: HEMATOCRIT 32.6 % (39.0-50.0); HEMOGLOBIN 10.1 g/dl (14.0-18.0); MEAN CELL VOLUME 102.8 fL CALC (80.0-100.0); MEAN CORPUSCULAR HGB 31.9 pG CALC (26.0-32.0); RED BLOOD COUNT 3.17 mill/uL (4.70-6.10); RED CELL DISTRI WIDTH 13.3 % (11.5-15.5)
[2023-01-05 06:24] LABS: ALBUMIN 2.9 g/dL (3.2-5.0); ALKALINE PHOSPHATASE 60 u/l (38-126); BILIRUBIN, TOTAL 0.4 mg/dL (0.2-1.3); BUN 17 mg/dL (8-23); BUN/CREATININE RATIO 30 (12-20 (CALC)); CHLORIDE 103 mmol/l (95-108); CREATININE 0.6 mg/dL (0.7-1.3); GFR FOR AFR.AMER. > 60 ML/MIN (>=60 (CALC)); GFR OTHER RACES > 60 ML/MIN (>=60 (CALC)); MAGNESIUM 1.9 mg/dL (1.6-2.3); POTASSIUM 3.4 mmol/l (3.5-5.1); SGOT/AST 23 u/l (19-48); SODIUM 140 mmol/l (137-146); TOTAL PROTEIN 5.8 g/dL (6.3-8.2)
[2023-01-05 06:30] VITALS: BP 128/72
[2023-01-05 06:41] LABS: ANION GAP 5 (6-22 (CALC)); CARBON DIOXIDE 35 mmol/l (22-30)
[2023-01-05 10:15] VITALS: BP 99/57
[2023-01-05] MEDS ORDERED: MEDDOSEPAK PO (12:26)
[2023-01-05] MEDS ORDERED: LASIX 40 MG TAB40 MG PO (12:26)
[2023-01-05] MEDS ORDERED: LEVAQUIN750 M1 PO (12:26)
[2023-01-05] MEDS ORDERED: KLOR-CON M2020 MEQ PO (12:27)
== END 2023-01-05 13:29 | disposition home health service (06) | DRG 177 ==
LOC: ED 20:38 → ED-I 12-28 02:43 → ED 12-28 03:15 → ICU 12-28 03:16 → MS2 12-28 11:03 → ICU 12-28 11:03 → MS2 12-29 14:40
PROVIDERS: Emergency Medicine; Internal Medicine; Nurse Practitioner Family; ADMIT Internal Medicine; ATTEND Internal Medicine
DX: J15.6 Pneumonia due to other Gram-negative bacteria (principal); I50.31 Acute diastolic (congestive) heart failure; J96.01 Acute respiratory failure with hypoxia; G90.3 Multi-system degeneration of the autonomic nervous system; J69.0 Pneumonitis due to inhalation of food and vomit; I11.0 Hypertensive heart disease with heart failure; E87.6 Hypokalemia; E03.9 Hypothyroidism, unspecified; G20 Parkinson's disease; F02.80 Dementia in other diseases classified elsewhere, unspecified severity, without behavioral disturbance, psychotic disturbance, mood disturbance, and anxiety; Z87.891 Personal history of nicotine dependence; Z20.822 Contact with and (suspected) exposure to COVID-19
CPT/HCPCS: J1650; J2060; Q9967

== ENCOUNTER 2023-03-11 18:46 | Emergency (ER) | payer MEDICARE, BC ==
[~2023-03-11] VITALS: Ht 167.6 cm; Wt 77.1 kg
[2023-03-11] VITALS (9 sets, daily range): BP systolic 95–137; BP diastolic 56–81
[~2023-03-11 18:46] MED LIST changes: +KLOR-CON M2020 MEQ PO; +LASIX 40 MG TAB40 MG PO; +LEVAQUIN750 M1 PO; +MEDDOSEPAK PO; +NUPLAZID34 MG PO
[2023-03-11 19:30] LABS: BASO% 0.1 % (0-3); EOS% 0.2 % (0-8); HEMATOCRIT 39.8 % (39.0-50.0); HEMOGLOBIN 12.6 g/dl (14.0-18.0); IMMATURE GRANULOCYTES 0.7 % (0.0-5.0); LYMPH% 4.8 % (15-41); MEAN CELL VOLUME 101.3 fL CALC (80.0-100.0); MEAN CORPUSCULAR HGB 32.1 pG CALC (26.0-32.0); MEAN CORPUSCULAR HGB CONC 31.7 g/dL CAL (32.0-36.0); MONO% 4.7 % (2-13); NEUT# 14.97 thou/uL (1.82-7.42); NEUT% 89.5 % (42-76); RED BLOOD COUNT 3.93 mill/uL (4.70-6.10); RED CELL DISTRI WIDTH 13.4 % (11.5-15.5)
[2023-03-11] MEDS ORDERED: DHIVY 100-25 MG1 TAB PO (19:39)
[2023-03-11 19:40] LABS: ALBUMIN 3.3 g/dL (3.2-5.0); BUN 18 mg/dL (8-23); BUN/CREATININE RATIO 28 (12-20 (CALC)); CARBON DIOXIDE 30 mmol/l (22-30); CHLORIDE 100 mmol/l (95-108); CPK 23 u/l (55-170); CREATININE 0.7 mg/dL (0.7-1.3); GFR FOR AFR.AMER. > 60 ML/MIN (>=60 (CALC)); GFR OTHER RACES > 60 ML/MIN (>=60 (CALC)); MAGNESIUM 1.9 mg/dL (1.6-2.3); SGOT/AST 20 u/l (19-48); SODIUM 135 mmol/l (137-146); TOTAL PROTEIN 6.2 g/dL (6.3-8.2)
[2023-03-11 19:43] LABS: ALKALINE PHOSPHATASE 92 u/l (38-126); ANION GAP 9 (6-22 (CALC)); BILIRUBIN, TOTAL 0.9 mg/dL (0.2-1.3); POTASSIUM 4.3 mmol/l (3.5-5.1)
[2023-03-11] MEDS ORDERED: BUDESONID2 IN (19:45)
[2023-03-11] MEDS ORDERED: PREDNISONE10 MG PO (19:45)
[2023-03-11 20:13] LABS: URINE BILIRUBIN - DIPSTICK NEGATIVE (NEGATIVE); URINE BLOOD DIPSTICK NEGATIVE (NEGATIVE); URINE COLOR YELLOW; URINE GLUCOSE - DIPSTICK NEGATIVE (NEGATIVE); URINE KETONE 15 mg/dL (NEGATIVE); URINE LEUK ESTERASE NEGATIVE (NEGATIVE); URINE NITRITE - DIPSTICK NEGATIVE (Negative); URINE PROTEIN - DIPSTICK NEGATIVE (NEG-TRACE); URINE UROBILINOGEN - DIPSTICK 0.2 E.U./dL (0.2)
== END 2023-03-11 21:06 | disposition home or self-care (01) ==
LOC: ED 18:46
PROVIDERS: Family Medicine
DX: G20 Parkinson's disease (principal); G90.3 Multi-system degeneration of the autonomic nervous system; I10 Essential (primary) hypertension; J44.9 Chronic obstructive pulmonary disease, unspecified; Z91.81 History of falling; Z20.822 Contact with and (suspected) exposure to COVID-19

== ENCOUNTER 2023-07-29 21:16 | Observation (INO) | payer MEDICARE, BC ==
[~2023-07-29] VITALS: Ht 167.6 cm; Wt 54.0 kg
[~2023-07-29 21:16] MED LIST changes: +AMOX/K CLAV875 M1 PO; +BUDESONID2 IN; +DHIVY 100-25 MG1 TAB PO; +RED YEAST RICE600 MG PO
--- NOTE | 2023-07-29 21:16 | NUR ---
PATIENT ARRIVED VIA EMS, PER EMS REPORT PATIENT IS ON 2L NASAL CANNULA, PATIENT BECAME SHORT OF BREATH, WAS RECENTLY IN THE HOSPITAL WITH PNEMONIA.
--- NOTE | 2023-07-29 21:30 | NUR ---
ATTEMPTED MED REC WITH PATIENT. PATIENT UNABLE TO CLARIFY MEDICATIONS,
--- NOTE | 2023-07-29 22:00 | NUR ---
DAUGHTER AND AT BEDSIDE.
[2023-07-29 22:42] LABS: BASO% 0.1 % (0-3); EOS% 0.8 % (0-8); HEMATOCRIT 39.1 % (39.0-50.0); HEMOGLOBIN 12.8 g/dl (14.0-18.0); IMMATURE GRANULOCYTES 0.2 % (0.0-5.0); LYMPH% 3.2 % (15-41); MEAN CELL VOLUME 102.1 fL CALC (80.0-100.0); MEAN CORPUSCULAR HGB 33.4 pG CALC (26.0-32.0); MEAN CORPUSCULAR HGB CONC 32.7 g/dL CAL (32.0-36.0); MONO% 2.6 % (2-13); NEUT# 15.63 thou/uL (1.82-7.42); NEUT% 93.1 % (42-76); RED BLOOD COUNT 3.83 mill/uL (4.70-6.10); RED CELL DISTRI WIDTH 12.4 % (11.5-15.5)
[2023-07-29 22:56] LABS: ALKALINE PHOSPHATASE 93 u/l (38-126); ANION GAP 15 (6-22 (CALC)); BILIRUBIN, TOTAL 0.8 mg/dL (0.2-1.3); BUN 12 mg/dL (8-23); BUN/CREATININE RATIO 19 (12-20 (CALC)); CARBON DIOXIDE 26 mmol/l (22-30); CHLORIDE 101 mmol/l (95-108); CREATININE 0.6 mg/dL (0.7-1.3); GFR FOR AFR.AMER. > 60 ML/MIN (>=60 (CALC)); GFR OTHER RACES > 60 ML/MIN (>=60 (CALC)); POTASSIUM 3.9 mmol/l (3.5-5.1); SGOT/AST 26 u/l (19-48); SODIUM 138 mmol/l (137-146); TOTAL PROTEIN 7.2 g/dL (6.3-8.2)
[2023-07-29 22:59] LABS: D-DIMER 0.76 mg/L (0.19-0.60)
[2023-07-29 23:02] LABS: INTERNATIONAL NORMALIZED RATIO 1.2 RATIO (0.7-1.3); PROTHROMBIN TIME 11.5 SECONDS (9.0-12.5)
[2023-07-29 23:05] LABS: ALBUMIN 3.7 g/dL (3.2-5.0)
[2023-07-30] VITALS (39 sets, daily range): BP systolic 77–139; BP diastolic 47–76
--- NOTE | 2023-07-30 | NUR ---
PATIENT REPOSITIONED TO RIGHT SIDE PER REQUEST, OFFLOADED OFF BOTTOM.
--- NOTE | 2023-07-30 00:23 | NUR ---
PATIENT REQUESTING TO USE URINAL, 250 ML VOIDED AT THIS TIME. URINE DARK LINUS. URINE SPECIMEN COLLECTED.
[2023-07-30 00:40] LABS: URINE BILIRUBIN - DIPSTICK Negative (NEGATIVE); URINE BLOOD DIPSTICK Negative (NEGATIVE); URINE GLUCOSE - DIPSTICK Negative (NEGATIVE); URINE KETONE Trace mg/dL (NEGATIVE); URINE LEUK ESTERASE Negative (NEGATIVE); URINE NITRITE - DIPSTICK Negative (Negative); URINE PROTEIN - DIPSTICK Trace mg/dL (NEG-TRACE); URINE SPECIFIC GRAVITY >=1.030; URINE UROBILINOGEN - DIPSTICK 0.2 E.U./dL (0.2)
[2023-07-30 00:45] LABS: URINE COLOR Yellow
--- NOTE | 2023-07-30 01:16 | NUR ---
NOTIFIED MD OF PATIENT BEING HYPOTENSIVE.
--- NOTE | 2023-07-30 02:42 | NUR ---
PATIENT RETURNED FROM CT SCAN. Adam CROWE TO PLACE PATIENT BACK ON MONITOR
--- NOTE | 2023-07-30 03:26 | NUR ---
NOTIFIED OF PATIENTS CURRENT B/P. PATIENT HYPOTENSIVE 85/50
--- NOTE | 2023-07-30 03:47 | NUR ---
PER DR ALBERTO DAVE HAS RELIQUISHED CARE. CALL TO DR DAVE REGARDING PATIENTS B/P. NOTFIED DR DAVE OF CTA RESULTS, CURRENT FLUIS OF 1620 CC GIVEN AND PATIENTS STATUS. LONG PATIENT IS ASYMTPMATIC FLUID AT KVO SUFFICIENT.
--- NOTE | 2023-07-30 05:38 | NUR ---
PATIENT MOVED TO INPATIENT BED, CURRENTLY AN ED HOLD.
--- NOTE | 2023-07-30 07:12 | NUR ---
ASSUMED CARE OF PT. PT RESTING WITH EYES CLOSED, PT RESTING WITH EYES CLOSED, VSS. AIRWAY PATENT, RESP EVEN AND NON LABORED,
--- NOTE | 2023-07-30 08:41 | NUR ---
PT REFUSED BREAKFAST AT THIS TIME, TRAY KEPT AT BEDSIDE INCASE PT CHANGES HIS MIND.
[2023-07-30 08:49] LABS: BASO% 0.1 % (0-3); HEMATOCRIT 39.2 % (39.0-50.0); HEMOGLOBIN 12.4 g/dl (14.0-18.0); IMMATURE GRANULOCYTES 0.2 % (0.0-5.0); LYMPH% 5.3 % (15-41); MEAN CELL VOLUME 103.7 fL CALC (80.0-100.0); MEAN CORPUSCULAR HGB 32.8 pG CALC (26.0-32.0); MEAN CORPUSCULAR HGB CONC 31.6 g/dL CAL (32.0-36.0); MONO% 1.8 % (2-13); NEUT# 8.17 thou/uL (1.82-7.42); NEUT% 92.6 % (42-76); RED BLOOD COUNT 3.78 mill/uL (4.70-6.10); RED CELL DISTRI WIDTH 12.5 % (11.5-15.5)
[2023-07-30 09:13] LABS: ALBUMIN 3.2 g/dL (3.2-5.0); ALKALINE PHOSPHATASE 78 u/l (38-126); ANION GAP 13 (6-22 (CALC)); BILIRUBIN, TOTAL 0.4 mg/dL (0.2-1.3); BUN 9 mg/dL (8-23); BUN/CREATININE RATIO 19 (12-20 (CALC)); CARBON DIOXIDE 26 mmol/l (22-30); CHLORIDE 104 mmol/l (95-108); CREATININE 0.5 mg/dL (0.7-1.3); GFR FOR AFR.AMER. > 60 ML/MIN (>=60 (CALC)); GFR OTHER RACES > 60 ML/MIN (>=60 (CALC)); MAGNESIUM 1.9 mg/dL (1.6-2.3); POTASSIUM 4.4 mmol/l (3.5-5.1); SGOT/AST 25 u/l (19-48); SODIUM 139 mmol/l (137-146); TOTAL PROTEIN 6.4 g/dL (6.3-8.2)
--- NOTE | 2023-07-30 11:00 | NUR ---
PO FLUIDS GIVEN TO PT. HE VERBALIZED
[2023-07-30] MEDS ORDERED: IPRATROPIUM BROMID1 (13:14)
[2023-07-30] MEDS ORDERED: ALBUTEROL SUL0.083 % IN (13:15)
[2023-07-30] MEDS ORDERED: HYOSCYAMINE0.125 M1 SL (13:17)
[2023-07-30] MEDS ORDERED: AMOXICILLIN/CL500 MG PO (13:18)
[2023-07-30] MEDS ORDERED: AMOX/K CLAV875 M1 PO (13:19)
[2023-07-30] MEDS ORDERED: MUCINEX600 MG PO (13:20)
[2023-07-30] MEDS ORDERED: MIRALAX17 GM (13:20)
[2023-07-30] MEDS ORDERED: LEVAQUIN750 M1 PO (15:22)
--- NOTE | 2023-07-30 16:50 | NUR ---
REPORT TO MATT DE LA ROSA AT [facility].
--- NOTE | 2023-07-30 17:00 | NUR ---
POSITIVE TRANSPORT HERE TO TRANSPORT PT TO HOSPICE HOUSE. PT LEAVES ER STRETCHER IN STABLE CONDITION.
== END 2023-07-30 17:10 | disposition hospice, inpatient (51) ==
LOC: ED 21:16 → ED-I 07-30 01:44
PROVIDERS: Family Medicine; ADMIT Student in an Organized Health Care Education/Training Program; ATTEND Student in an Organized Health Care Education/Training Program
DX: J69.0 Pneumonitis due to inhalation of food and vomit (principal); I11.0 Hypertensive heart disease with heart failure; I50.9 Heart failure, unspecified; G20.A1 Parkinson's disease without dyskinesia, without mention of fluctuations; F02.80 Dementia in other diseases classified elsewhere, unspecified severity, without behavioral disturbance, psychotic disturbance, mood disturbance, and anxiety; R13.10 Dysphagia, unspecified; I34.1 Nonrheumatic mitral (valve) prolapse; N40.0 Benign prostatic hyperplasia without lower urinary tract symptoms; Z51.5 Encounter for palliative care; Z66 Do not resuscitate; Z74.2 Need for assistance at home and no other household member able to render care; Z87.01 Personal history of pneumonia (recurrent)
CPT/HCPCS: Q9967